=== PATIENT | female | born 1955 | race Caucasian/White ===

== ENCOUNTER 2018-10-30 19:25 | Emergency (ER) | payer OTHER ==
[~2018-10-30] VITALS: Ht 165.1 cm; Wt 81.7 kg
[~2018-10-30 19:25] MED LIST: MACROBID 100 M100 M1 PO; NOHOMEMEDICATIONS; NORCO 5-325 TA1 EACH PO; VALIUM2 MG PO
[2018-10-30 20:06] LABS: ABSOLUTE NEUTROPHILS 3.4 thou/uL (1.4-8.2); BASOPHILS 0.6 % (0.0-2.0); EOSINOPHILS 1.7 % (0.0-3.0); HEMATOCRIT 44.5 % (37.0-47.0); MCH 28.6 pg (26.0-34.0); MCHC 33.7 g/dL (28.0-37.0); MONOCYTES 8.9 % (1.0-8.0); PLATELET COUNT 299 thou/uL (150-400); POLYS 66.8 % (36.0-66.0); RBC 5.24 mil/uL (4.20-5.00); RDW 14.7 % (10.5-14.5); WBC 5.1 thou/uL (4.0-11.0)
[2018-10-30 20:13] LABS: ANION GAP 12 mmol/L (7-16); BUN 10 mg/dL (7-18); CALCIUM 9.8 mg/dL (8.5-10.1); CHLORIDE 99 mmol/L (98-107); CO2 25 mmol/L (21-32); CREATININE 0.9 mg/dL (0.6-1.0); GLUCOSE 129 mg/dL (74-106); POTASSIUM 3.7 mmol/L (3.5-5.1); SODIUM 136 mmol/L (136-145)
[2018-10-30 20:21] LABS: TROPONIN-I <0.06 ng/mL (<0.06)
[2018-10-31] MEDS ORDERED: ATIVAN0.5 MG PO (00:09)
[2018-10-31 00:16] VITALS: BP 130/81
--- NOTE | 2018-11-02 08:03 | EKG ---
[place] [address] [facility] [employer] [place] [address] ELECTROCARDIOGRAM REPORT Name: AYANA BURROWS Room #: [facility] [id number] ������������������ Admission: 10/30/18 ������������������ Attend Phys: Discharge: 10/31/18 ������������������ Date of : 59 Report #: [id number] ����������������������������������������������������������������� [id number] THIS REPORT FOR: //name// 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 : 1955 Requested By: Charla Helm Order Number: [id number] MD: Goyo Gordon Measurements Intervals [place] Rate: 87 P: 42 WV: 131 QRS: 38 QRSD: 74 T: 35 QT: 352 QTc: 424 Interpretive Statements Sinus rhythm Nonspecific ST and T wave abnormality No previous ECG available for comparison Electronically Signed On 11-02-2018 8:03:43 CDT by Goyo Gordon [email or web address] ��������������������������������������������� <ELECTRONICALLY SIGNED> ���������������������������������������� By: Goyo Gordon MD, [facility] ��������������������������������������������� 11/02/18 08 45 45 Goyo Gordon MD, FACC /EPI
== END 2018-10-31 00:16 | disposition home or self-care (01) ==
LOC: ER 19:25
PROVIDERS: Emergency Medicine
DX: R07.89 Other chest pain (principal); I10 Essential (primary) hypertension; M54.9 Dorsalgia, unspecified; G89.29 Other chronic pain; Z91.040 Latex allergy status